=== PATIENT | male | born 1960 | race Caucasian/White ===

== ENCOUNTER 2016-03-24 05:45 | Inpatient (IN) | payer OTHER ==
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
[2016-03-19 15:06] LABS: % IMMATURE GRANULYOCYTES 0.2 % (0.0-1.1); ABSOLUTE IMMATURE GRANULOCYTES 0.01 10^3/uL (0.00-0.10); ADD DIFF? NO; ADD MORPH? NO; ADD SCAN? NO; ATYPICAL LYMPHOCYTE FLAG 0 (0-99); FRAGMENT RBC FLAG 0 (0-99); HEMOGLOBIN 14.3 g/dL (13.7-17.5); LEFT SHIFT FLG 0 (0-99); LIPEMIA HEMOLYSIS FLAG 90 (0-99); MEAN CELL HEMOGLOBIN 31.7 pg (27.9-34.1); MEAN CELL HEMOGLOBIN CONCENTR. 35.8 g/dL (32.4-36.7); MEAN CELL VOLUME 88.7 fL (81.5-99.8); MEAN PLATELET VOLUME 10.4 fL (8.7-11.7); PLATELET CLUMPS FLAG 0 (0-99); PLATELET COUNT 204 10^3/uL (150-400); RED BLOOD CELL COUNT 4.51 10^6/uL (4.40-6.38); RED CELL DISTRIBUTION WIDTH 11.9 % (11.5-15.2)
[2016-03-24] MEDS ORDERED: CHLORHEXIDINE GLUC HIBICLENS 118 ML BTL TP ONE (06:00)
[2016-03-24] MEDS ORDERED: NS IV ONE (06:00)
[2016-03-24] MEDS ORDERED: POVIDONE-IODINE 20 ML in SODIUM CL IRRIG SOLUTION 500 ML IRR ONE (06:00)
[2016-03-24] MEDS ORDERED: FAMOTIDINE 20 MG TAB PO ONE (06:00)
[2016-03-24] MEDS ORDERED: DEXAMETHASONE 4 MG/ML VIAL IVP ONE (06:00)
[2016-03-24] MEDS ORDERED: CEFAZOLIN 2 GM/DEXTR 100 ML IV ONE (06:00)
[2016-03-24] MEDS ORDERED: TRANEXAMIC ACID IV ONE (06:00)
[2016-03-24] MEDS ORDERED: ROPI/epiNEPH/KETOROLAC JOINT COCKTAIL IU ONE (06:00)
[2016-03-24] MEDS ORDERED: ACETAMINOPHEN 325 MG TAB PO ONE (06:00)
[2016-03-24] MEDS ORDERED: SKIN ADHESIVE (DERMABOND) 1 EACH TP ONE (06:43)
[2016-03-24] MEDS ORDERED: ceFAZolin 1 GM/5 ML SYR ONE (06:44)
[2016-03-24] MEDS ORDERED: MIDAZOLAM 2 MG/2 ML VIAL ONE (07:03)
[2016-03-24] MEDS ORDERED: fentaNYL 100 MCG/2 ML INJ ONE (07:06)
[2016-03-24] MEDS ORDERED: PROPOFOL/EMULSION 500 MG/50 ML BOTTLE IV ONE ×2 (07:07→08:27)
[2016-03-24] MEDS ORDERED: LIDOCAINE 2% 5 ML SDV ONE ×2 (07:11)
[2016-03-24] MEDS ORDERED: LIDOCAINE 1% 5 ML SDV ID PRN (07:13)
[2016-03-24] MEDS ORDERED: LR 1,000 ML IV ONE (07:13)
[2016-03-24] MEDS ORDERED: epHEDrine SULFATE 10 MG/ML SYR ONE (07:57)
[2016-03-24] MEDS ORDERED: PHENYLEPHRINE 10 MG/ML SDV ONE (08:14)
--- NOTE | 2016-03-24 09:06 | POSTOPPROG ---
Post Op Note Date of Operation: 03/24/16 Surgeon: Yoan Jeronimo Mosquito Sprayer: Ayaan Anesthesiologist: Leo Anesthesia: IV Sedation, Spinal Post-op Diagnosis: left hip arthritis Procedure: left BHR Inf/Abcess present in the surg proc area at time of surgery?: No EBL: 100-500
[2016-03-24] MEDS ORDERED: ALBUTEROL 60 PUFFS/8 GM MDI IH PRN (09:21)
[2016-03-24] MEDS ORDERED: NS 500 ML IV PRN (09:22)
[2016-03-24] MEDS ORDERED: ONDANSETRON 4 MG/2 ML VIAL IVP PRN (09:22)
[2016-03-24] MEDS ORDERED: ONDANSETRON DISINTEGRATING 4 MG TAB PO PRN (09:22)
[2016-03-24] MEDS ORDERED: METOCLOPRAMIDE 10 MG/2 ML VIAL IVP PRN (09:22)
[2016-03-24] MEDS ORDERED: traMADol 50 MG TAB PO PRN (09:22)
[2016-03-24] MEDS ORDERED: LACTULOSE 20 GM/30 ML UDCUP PO PRN (09:22)
[2016-03-24] MEDS ORDERED: DIPHENOXYLATE/ATROPINE LOMOTIL 1 TAB PO PRN (09:22)
[2016-03-24] MEDS ORDERED: POLYETHYLENE GLYCOL 3350 17 GM PKT PO PRN (09:22)
[2016-03-24] MEDS ORDERED: diphenhydrAMINE 25 MG CAP PO PRN (09:22)
[2016-03-24] MEDS ORDERED: PHARMACY PAIN CONSULT 1 EA MISC PRN (09:22)
[2016-03-24] MEDS ORDERED: BISACODYL 10 MG SUPP PR PRN (09:22)
[2016-03-24] MEDS ORDERED: KETOROLAC 30 MG/1 ML SDV IVP PRN (09:22)
[2016-03-24] MEDS ORDERED: MAGNESIUM HYDROXIDE 30 ML UDCUP PO PRN (09:22)
[2016-03-24] MEDS ORDERED: TEMAZEPAM 15 MG CAP PO PRN (09:22)
[2016-03-24] MEDS ORDERED: PROMETHAZINE HCL 25 MG SUPPR PR PRN (09:22)
[2016-03-24] MEDS ORDERED: PROMETHAZINE HCL 25 MG/ML VIAL IVP PRN (09:22)
[2016-03-24] MEDS ORDERED: LR 1,000 ML IV SCH (09:30)
--- NOTE | 2016-03-24 09:49 | DX ---
Single Portable AP Pelvis March 24, 2016 Indication: Follow up femoral prosthesis. Comparison: January 03, 2007. Findings: The right hip hemiarthroplasty is unchanged in position. There is a new left femoral head p rosthesis in good anatomic position. Previously noted radiopaque shrapnel is unchanged. Surgical clip s consistent with prior vasectomy are unchanged. Impression: 1. Unchanged right femoral prosthesis 2. New left femoral prosthesis in anatomic position.
--- NOTE | 2016-03-24 09:56 | GOP ---
[f rep st] OPERATIVE REPORT DATE OF OPERATION: 03/24/2016 SURGEON: Yoan Jeronimo MD CARDROOM ATTENDANT: Greg Kuo and Fabrizio Allen. ANESTHESIA: A combination of Marcaine spinal and IV sedation by Dr. Jerald Bailey. PREOPERATIVE DIAGNOSIS: Left hip severe degenerative arthritis. POSTOPERATIVE DIAGNOSIS: Left hip severe degenerative arthritis. PROCEDURE PERFORMED: 03/24/2016, a left hip Ekaterina hip resurfacing arthroplasty. FINDINGS: DESCRIPTION OF PROCEDURE: The patient was given 2 g of preoperative IV Ancef within 60 minutes of canales rgery. He also received IV tranexamic acid at a dose of 20 mg/kg. He was placed on the operating ro om table and given spinal anesthesia with Marcaine by Dr. Bailey. He was then placed supine and given IV sedation. A Anderson catheter was not used. He wore a compressive stocking and SCD on the no noperative leg. He was rolled to the right lateral decubitus position. An axillary roll was used an d all pressure points were carefully padded. His position was secured with the pegboard table attach ment. I was careful to lock his pelvis in a vertical position. His perineum was isolated with plast ic adhesive drapes. The left hip and left lower extremity were prepped with ChloraPrep. They were d raped free using sterile sheets, stockinette, and Ioban plastic drape. The [employer] time-out was performed to verify the correct patient identity and the c orrect surgical side. The [place] time-out was also performed. I made a 7-8 inch straight oblique posterolateral hip skin incision. Subcutaneous tissues were sharp ly divided, and hemostasis was obtained using electrocautery. His fascia bradley was identified and spl it along the axis of its fibers. I then curved posteriorly and proximally and split the fascia of th e gluteus eugene and bluntly split the muscle fibers in line with their orientation. His sciatic ne rve was identified and protected throughout the procedure. The Charnley self-retaining retractor was inserted. The external rotators and the posterior hip capsule were divided as separate layers at th e base of the femoral neck, tagged and reflected posteriorly. The gluteus eugene tendon was divided and tagged in order to improve exposure and release tension on the sciatic nerve. His hip was dislo cated posteriorly. I used a sizing gauge to check the diameter of the neck, and concluded that 52 mm was the proper head size. I performed a circumferential capsulotomy. I was able to retract his fem oral head anteriorly and superiorly and hold it out of place with appropriate retractors. The remnan t of his damaged labrum was excised. His acetabulum was reamed sequentially up to 58 mm. I selected the [place] monoblock porous-coated acetabular component with an outside diameter of 58 mm. This was firmly impacted and was very tight. I was careful to determine proper inclination and anteversi on. I used the remnant of his transverse acetabular ligament and other acetabular bony landmarks to help me properly orient the cup. Some small anterior acetabular rim osteophytes were removed with an osteotome and rongeur. I was careful to leave a good lip of bone and capsule extending beyond the a nteroinferior lip of the metal cup. I then returned to preparation of the femoral head. Using appropriate jigs and guides, I inserted a guide pin into the femoral head and neck. I was careful to position in such a way that there would b e no notching of the neck. The large sterile metal goniometer was used to check the neck shaft angle . I reamed over the guide pin and inserted the reaming guide. I then used the cylindrical reamer do wn to the head and neck junction. This was followed by the flat reamer and the chamfer reamer. His femoral head and neck were in a slight varus position, and I had to adjust for that in my positioning . He had very good quality bone in his femoral neck and head. The head was sized for 52 mm. There was no damage or impingement to the neck. I drilled a small hole in the lesser trochanter and insert ed a suction cannula to create negative pressure in the medullary canal. Small holes were drilled on the flattened chamfer surfaces of the head for cement anchors. The head was thoroughly cleaned with the pulsating lavage and carefully dried. I used a CarboJet device to blow dry the cancellous surfa christoph. A single batch of Simplex cement with tobramycin was mixed. At about 50 seconds, I poured the liquid cement into the head component, inserted it onto the femoral head and impacted it into place. Excess cement was removed before it hardened. The acetabulum was irrigated, cleaned and inspected, and the hip was reduced. Stability and range of motion were checked. I placed my finger along the a nterior aspect of the acetabular component and flexed the hip to 110 degrees. There was no anterior impingement. The suction cannula and lesser trochanter was removed. The joint was thoroughly irriga justa with a dilute Betadine solution. 40 mL of a joint anesthetic cocktail were injected into the cap tanmay, the deep musculature and the subcutaneous tissues along the skin edges. The sciatic nerve was reinspected and looked unharmed. The external rotators and the posterior hip c apsule were repaired in separate layers with #2 FiberWire sutures through drill holes in the greater trochanter. This provided a strong posterior capsular and external rotator repair. The gluteus maxi mus tendon was repaired with 2 interrupted [id number] #2 FiberWire sutures. The fascia bradley was repaired 1st with 2 interrupted [id number]-[id number] #2 FiberWire sutures, followed by a running #2 barbe d Ethicon Stratafix PDO suture. The subcutaneous tissues were closed with a running 0 barbed Ethicon Stratafix Monoderm suture. The skin was closed with a running 3-0 barbed Ethicon Stratafix Monoderm subcuticular suture. The skin edges were reapproximated and sealed with Dermabond glue. The wound was covered with a strip of Telfa, and everything was held in place with a piece of clear plastic Teg aderm. The estimated blood loss was about 400 mL. I used a [employer] [place] hip resurfacing System. The acetabular component was 52 mm in d iameter and press-fit. The femoral head was 52 mm and cemented. He was awakened from anesthesia and rolled to the supine position on his [facility]. A long-leg compressive stocking and SCD were applied to the operative leg. An abduction pillow was placed between his knees. He was taken to PAC U in satisfactory condition. There were no recognized intraoperative complications. The sponge and needle count were correct on 2 occasions. Greg Kuo and Fabrizio Allen acted as surgical assistants. Their assistance was a medical necess ity. Copy requested to: Mook Parks [employer] /[id number]/MODL
--- NOTE | 2016-03-24 10:01 | GDS ---
[f rep st] DISCHARGE SUMMARY ADMISSION DIAGNOSIS: Left-hip advanced degenerative arthritis. DISCHARGE DIAGNOSIS: Left-hip advanced degenerative arthritis. OPERATIONS PERFORMED: 03/24/2016, a left-hip [place] hip resurfacing arthroplasty. POSTOPERATIVE COMPLICATIONS: None. CONDITION ON DISCHARGE: Improved. DESCRIPTION OF HOSPITAL COURSE: The patient was admitted to the hospital on the morning of surgery. His admission CBC was normal. The same day, under a combination of Marcaine spinal and IV sedation, he underwent a left-hip Ger[place] hip resurfacing arthroplasty. Postoperatively, he was treated with multimodal DVT prophylaxis, including aspirin. He was seen by Physical Therapy and made rapid progress with ambulation and stairs. By the the first post op day, he was comfortable and independent walking and was discharged. DISPOSITION: The patient was discharged to his home. He will go to outpatient physical therapy. He may progress to full weightbearing on the left as tolerated. Use an abduction pillow in bed for 3 weeks. Use MACKENZIE stockings for 1 week. Continue aspirin 325 mg p.o. daily for 21 days. He has prescriptions for oxycodone and tramadol for pain control. I will see him back in the office on April 06, 2016. If there are any problems , he is to call me at the office. Copy requested to: Mook Parks MD [place], [place] /[id number]/MODL MTDD
[2016-03-24] MEDS ORDERED: TRANEXAMIC ACID 650 MG TAB PO SCH (10:30)
[2016-03-24] MEDS: ACETAMINOPHEN 325 MG TAB PO SCH ×2 (11:16→17:54)
[2016-03-24] MEDS: CYCLOBENZAPRINE 10 MG TAB PO PRN ×2 (11:16→21:56)
[2016-03-24] MEDS: oxyCODONE IR 5 MG TAB PO PRN ×2 (13:10→18:38)
[2016-03-24] MEDS: ceFAZolin 2 GM/DEXTROSE 100 ML IV SCH (17:55)
[2016-03-24] MEDS ORDERED: NON-FORMULARY NEW DRUG (Simvastatin [Zocor] 40 MG) PO SCH (21:00)
[2016-03-24] MEDS ORDERED: ATORVASTATIN CALCIUM 20 MG TAB PO SCH (21:00)
[2016-03-24] MEDS: SENNOSIDES/DOCUSATE SODIUM TAB PO SCH (21:51)
[2016-03-24] MEDS: TRANEXAMIC ACID 650 MG TAB PO SCH (21:52)
[2016-03-24] MEDS: FAMOTIDINE 20 MG TAB PO SCH (21:53)
[2016-03-24 23:28] VITALS: RESP 16
[2016-03-25] MEDS: ASPIRIN 325 MG TAB PO SCH ×2 (00:13→08:55)
[2016-03-25] MEDS: ACETAMINOPHEN 325 MG TAB PO SCH ×2 (00:13→06:31)
[2016-03-25] MEDS: oxyCODONE IR 5 MG TAB PO PRN ×2 (00:13→08:55)
[2016-03-25] MEDS: ceFAZolin 2 GM/DEXTROSE 100 ML IV SCH (00:14)
[2016-03-25 05:30] LABS: HEMATOCRIT 30.1 % (40.0-51.0); HEMOGLOBIN 10.8 g/dL (13.7-17.5)
[2016-03-25 07:50] VITALS: BP 103/61; PULSE 67; TEMP 97.7; O2SAT 96
[2016-03-25] MEDS: TRANEXAMIC ACID 650 MG TAB PO SCH (08:54)
[2016-03-25] MEDS: FAMOTIDINE 20 MG TAB PO SCH (08:54)
[2016-03-25] MEDS: SENNOSIDES/DOCUSATE SODIUM TAB PO SCH (08:56)
[2016-03-25] MEDS ORDERED: FERROUS SULFATE 140 MG TAB.ER PO SCH (09:00)
--- NOTE | 2016-03-25 09:38 | POSTOPPROG ---
Post Op Note Date of Operation: 03/25/16 Surgeon: Yoan Yang [place] Inf/Abcess present in the surg proc area at time of surgery?: No
--- NOTE | 2016-03-25 09:38 | SOAPPROG ---
SOAP Progress Note Assessment/Plan: Assessment: Afebrile. Moderate pain. Up and walking. H/H is good. Films look good. H/H is good. Plan: Finish PT today. DC later today. 03/25/16 09:38 Objective: Vital Signs Temp Pulse Resp BP Pulse Ox 36.5 C 67 16 103/61 96 03/25/16 07:49 03/25/16 07:49 03/25/16 07:49 03/25/16 07:49 03/25/16 07:49 Laboratory Results 03/25/16 05:05 03/24/16 03/25/16 03/26/16 05:59 05:59 05:59 Intake Total 2960 750 Output Total 600 Balance 2360 750 ICD10 Worksheet Patient Problems: Problems Problem Status Diagnosed Primary osteoarthritis of left hip Acute
== END 2016-03-25 10:23 | disposition home or self-care (01) | DRG 470 ==
LOC: F3N 05:45
PROVIDERS: ADMIT Orthopaedic Surgery; ATTEND Orthopaedic Surgery
PROC: 0SUB0BZ Supplement Left Hip Joint with Resurfacing Device, Open Approach (ICD-10-PCS; principal; 2016-03-24 07:15)
DX: M16.12 Unilateral primary osteoarthritis, left hip (principal); E78.00 Pure hypercholesterolemia, unspecified
CPT/HCPCS: 97110-GP; 97116-GP; 97161-GP; 97166-GO; C1713; C1769; J0171; J0690; J1100; J1885; J2250; J2370; J2704; J2795; J3010